=== PATIENT | female | born 1955 | race Caucasian/White ===

== ENCOUNTER 2018-01-30 03:47 | Inpatient (IN) | payer MEDICARE, MEDICAID ==
[2018-01-30] MEDS ORDERED: Nitroglycerin 0.4 MG TAB (25 Tab Bottle) ONE (05:30)
[2018-01-30 05:50] LABS: Troponin I Less than 0.010 ng/mL (< 0.028)
[2018-01-30 08:30] LABS: Troponin I Less than 0.010 ng/mL (< 0.028)
[2018-01-30 09:15] VITALS: BMI 33.7
[2018-01-30] MEDS ORDERED: Acetaminophen 325 MG TAB PO PRN (10:41)
[2018-01-30] MEDS ORDERED: traMADol HCl 50 MG TAB PO PRN (10:41)
[2018-01-30] MEDS ORDERED: Ondansetron ODT 4 MG TAB PO PRN (10:41)
[2018-01-30] MEDS ORDERED: Dextrose 5% in Water 1,000 ML IV PRN (10:41)
[2018-01-30] MEDS ORDERED: PROVENTIL INHALER 6.7 G (200 INHALATIONS) INH PRN (10:41)
[2018-01-30] MEDS ORDERED: HumaLOG 300 UNITS/3 ML VIAL SC PRN (10:41)
[2018-01-30] MEDS ORDERED: Dextrose 50% Abboject 50 ML SYRINGE SLOW IVP PRN (10:41)
--- NOTE | 2018-01-30 11:56 | HP ---
PRIMARY CARE PHYSICIAN: Dr. Hector Yang in [place]. CHIEF COMPLAINT: Chest pain. HISTORY OF PRESENT ILLNESS: Ms. Licea is a pleasant 62-year-old female that has a history of hyper tension, type 2 diabetes mellitus, coronary artery disease. She has had a 2-vessel CABG about 2 year s ago. She was in her usual state of health until yesterday morning. She says she was awakened from sleep with a heaviness in her chest. She says it was fairly severe. It felt like somebody was sitt ing on her chest. This started around 11:30 and continued until about 3:00 in the evening when she h ad gone to the emergency room in [place]. Apparently, it took 2 nitroglycerin in order to relieve it as she had another episode as well. She says it does feel similar to the pressure she had when sh eric had to have her bypass surgery. However, she says she has seen a transcription coordinator back in December and had a stress test which was okay. She says this was done because she was recently diagnosed with a very small pulmonary embolism in which she was placed on Eliquis and apparently the doctors at the [facility] there had sent her to see the transcription coordinator primarily as a precaution. She also has an appointment to see a dairy nutritionist on Friday or Friday of this coming week. The patient's says that th ey had stopped taking the Eliquis because they thought this could be causing her symptoms. She had b een on Plavix, but then when she was recently diagnosed with a pulmonary embolism she was taken off o f Plavix and put on Eliquis instead. While she was on Eliquis she started having this chest pressure and so she stopped taking it and went back on the Plavix. For some reason, they went back to taking the Eliquis again, but this time instead of taking it twice a day every day she would take Eliquis i n the morning and then only every other day in the evening and during this time they noticed that the chest pressure returned. The patient also complains of some shortness of breath, but no nausea, no vomiting, no diaphoresis. No lower extremity edema, no PND, no orthopnea. REVIEW OF SYSTEMS: All systems were reviewed and are negative except for that mentioned in the histo ry of present illness. PAST MEDICAL HISTORY: Coronary artery disease. She has had stents placed, the most recent was in . She had a bypass surgery 2 years ago. Also has diabetes mellitus type 2, hyperlipidemia, hypert ension, history of a hemorrhagic stroke in which she has had a DOWEL PIN WORKER shunt. She also has vertigo. PAST SURGICAL HISTORY: She has had a 2-vessel bypass, left hip and shoulder, DOWEL PIN WORKER shunt, tonsillectomy , bilateral tubal ligation, coronary stents x2. SOCIAL HISTORY: She is a former smoker. She quit in 2011. She had been smoking for 30 years and a pack a day. Denies any alcohol use. She is . ALLERGIES: CIPRO, PENICILLIN, SULFA. MEDICATIONS: Multivitamins once daily, omega 3 fatty acids 1 twice a day, cranberry 400 mg daily, ca lcium 600 mg daily, docusate 100 mg twice a daily, magnesium 250 mg daily, aspirin 81 mg a day, iron 27 mg daily, metoprolol tartrate 25 mg daily, niacin 1000 mg daily, atorvastatin 80 mg daily, lisinop ril 30 mg daily, nortriptyline 75 mg daily, Plavix 75 mg daily, buspirone 10 mg twice a day, metformi n 1000 mg twice daily, citalopram 20 mg daily, meclizine 25 mg t.i.d., ProAir 2 puffs q.6 hours as ne eded, benzonatate 150 mg daily, Zofran 4 mg q.8 hours p.r.n., Victoza 1.8 mg daily, Tramadol 50 mg q. 6h. as needed, Levemir 20 units subcu q.p.m., loratadine 10 mg daily. PHYSICAL EXAMINATION: GENERAL: She is alert and oriented. She appears to be in no acute distress. VITAL SIGNS: Blood pressure was 148/99, heart rate 94, respiratory rate of 18, temperature is 97.5, O2 sat was 100% on 2 liters. HEENT: Pupils are equal, round, and reactive. Extraocular muscles are intact. Her sclerae are anic teric. Throat; there is no erythema, no exudates. NECK: No adenopathy, no bruits. LUNGS: Clear to auscultation, no wheezing, no rales. CARDIOVASCULAR: She had a normal S1, S2. I did not appreciate an S3 or S4. No murmurs, clicks or r ubs. ABDOMEN: Obese, it is soft, it is nontender, nondistended. Positive for bowel sounds. No rebound, no guarding. EXTREMITIES: There is no edema. NEUROLOGIC: Her cranial nerves II-XII are intact. Muscle strength is 5/5 in both her upper and lowe r extremities. SKIN AND INTEGUMENT: No skin changes. No rash. LABORATORY: Troponins were all less than 0.010. The lab work from [place] was reviewed and it was noted that she had an elevated creatinine of 1.7. The sodium was 135, potassium 4.7, chloride 99, CO2 is 20, BUN of 32.8. Her white blood cell count was 12.1, hemoglobin 8.5, hematocrit is 27.3, platelet count was 366. She had a CT scan of the brain showing no acute intracranial abnormality. There was small bifrontal ____ extraaxial collections, possibly a small chronic subdural hygromas and she had a CT angiogram of the neck showing no occlusion of the basilar artery; however, there was 75% extensive type mixed art hrosclerotic plaque in both the right and the left internal carotid arteries. ASSESSMENT AND PLAN: 1. This is a pleasant 62-year-old female that presented to the emergency room complaining of chest p ressure which was very similar to what she had when she required a bypass. She reports having a rece nt negative stress test. However, she has significant risk factors for coronary artery disease inclu ding previous NE, diabetes mellitus, and hypertension. Therefore, we will bring her into observation and try to obtain her records from her previous hospital stays and consult Cardiology for further re commendations. 2. She apparently had some symptoms which were concerning for an acute coronary event while she was in the emergency room at [place]. Her tells me that they were concerned that she had some weakness in her right leg. Currently, those symptoms have completely resolved. A CT scan of the bra in was negative; however, she did have significant plaque in both of her carotid arteries. Therefore , we will consult Vascular Surgery for their recommendations. 3. With regards to diabetes mellitus, we will continue her home medications with the exception of me tformin and place her on a sliding scale insulin. 4. She does have an elevated creatinine. It is unknown if this is acute versus chronic kidney disea se. We will give her a little bit of IV fluids and recheck it to see if it has improved and further recommendations are to follow.
[2018-01-30 11:59] LABS: Troponin I Less than 0.010 ng/mL (< 0.028)
[2018-01-30] MEDS ORDERED: busPIRone HCl 10 MG TAB PO SCH ×2 (13:30)
[2018-01-30] MEDS: Meclizine HCl 25 MG TAB PO SCH ×2 (14:02→21:39)
--- NOTE | 2018-01-30 17:33 | CON ---
DATE OF CONSULTATION: 01/30/2018 SUBJECTIVE: Patient is a 62-year-old woman who presents with midsternal chest discomfort. The patie nt has a previous history of coronary artery disease. She underwent coronary bypass surgery x2 appro ximately three years ago. She is followed by a sourcing analyst in [place]. The patient states ever since her bypass, she would have midsternal chest discomfort. She was recently hospitalized 2 months ago w ith chest pain. She apparently underwent a stress test that is unremarkable. The patient has been t reated medically. She also has a history of a possible pulmonary embolus. She was treated temporari ly with Eliquis. The patient has continued to have intermittent chest discomfort. The patient state s that on the day of admission, she woke with midsternal chest discomfort. This lasted for several h ours. She received nitroglycerin in the [place] [facility] and with eventual resolution of her chest discomfort. She was transferred to [facility] and received another sublingual nitrog lycerin. The patient denies having any present chest discomfort. PAST MEDICAL HISTORY: 1. Coronary artery disease. 2. History of coronary bypass surgery. 3. History of possible pulmonary embolus. 4. Diabetes mellitus. 5. Hypertension. 6. History of cerebrovascular accident. 7. History of WATER RESOURCES PROJECT MANAGER shunt. PAST SURGICAL HISTORY: She has had a WATER RESOURCES PROJECT MANAGER shunt. She has had a tubal ligation. She has had a tonsill ectomy. SOCIAL HISTORY: She is a former smoker. ALLERGIES: She is allergic to SULFA, PENICILLIN, CIPROFLOXACIN. MEDICATIONS ON ADMISSION: Include metoprolol 25 daily, lisinopril 30 daily, Lipitor 80 daily, Plavix 75 daily, buspirone 10 daily, metformin 1000 b.i.d., Victoza 1.8 mg daily. REVIEW OF SYSTEMS: Noticeable for weakness, loss of hearing. Ten point system is otherwise unremark able. PHYSICAL EXAMINATION: GENERAL: Obese woman in no acute distress. VITAL SIGNS: Blood pressure 116/75. NECK: Showed no jugular venous. LUNGS: Clear to auscultation. HEART: Regular rate and rhythm, normal S1 and S2 with a 1/6 systolic murmur. ABDOMEN: Distended. EXTREMITIES: Showed mild edema. SKIN: Warm and dry. NEUROLOGIC: Nonfocal. VASCULAR: Radial pulses are 2+. LABORATORY DATA AND IMAGING DATA: Her troponin was less than 0.01, her sodium was 136, potassium 4.7 , chloride 99, bicarbonate 20, BUN 32.8, creatinine is 1.7, hemoglobin 8.5, hematocrit 27.3. Her EKG revealed normal sinus rhythm with a right bundle branch block or no acute ST-T wave changes. Her CT scan revealed her to have extensive bilateral cerebrovascular disease with 75% narrowing. IMPRESSION: 1. Chest pain. 2. History of coronary bypass surgery. 3. Cerebral vascular disease. 4. Hypertension. 5. Diabetes mellitus. 6. Obesity. This patient presented with chest pain. She apparently previously underwent a stress test just two mo nths ago, there was no evidence of ischemia. From a cardiac standpoint, would obtain CV Surgery cons ult to evaluate CV surgery consultation. We would add Imdur to her medical regimen. We will obtain records from her previous hospitalization.
--- NOTE | 2018-01-30 18:49 | CON ---
DATE OF CONSULTATION: 01/30/2018 DATE OF ADMISSION: 01/30/2018 REASON FOR CONSULTATION: Evaluate patient with asymptomatic carotid stenosis. HISTORY OF PRESENT ILLNESS: Ms. Licea is a 62-year-old woman who approximately 2 years ago underwe nt coronary bypass grafting x2 in [place]. Since that time, she has been admitted a couple of times in [place] with chest pain and shortness of breath. We have no records and no ability at this point other than the patient's history at seeing what actually transpired. The patient states that she has had chest pain, shortness of breath, and heaviness in her chest which is typical for angina for her. She had symptomatology similar to this before she had her bypasses d one. She has been in the hospital a couple times and told that there was nothing wrong with her hear t recently. The patient states that she has known carotid stenosis. She has been followed by her rural route mail carrier in [place]. At the time of her being seen in the [place] [facility], they performed a CT angiogram of her neck and brai n, this shows approximately 75% stenosis of the bilateral internal carotid arteries. On questioning, the patient has had no paralysis. She has had no amaurosis-type symptoms. She has h ad no speech difficulty. Dr. Quinones has seen her and is in the process of working up her cardiac situation. PAST MEDICAL HISTORY: 1. Coronary artery disease/status post coronary artery grafting. 2. Diabetes mellitus. 3. Dyslipidemia. 4. Hypertension. 5. History of a hemorrhagic stroke in which she has a NET SOLUTIONS ARCHITECT shunt. 6. History of vertigo. PAST SURGICAL HISTORY: 1. Coronary bypass grafting x2. 2. Left hip surgery. 3. Shoulder surgery. 4. NET SOLUTIONS ARCHITECT shunt. 5. Tonsillectomy. 6. Tubal ligation. SOCIAL HISTORY: She is a former smoker - she quit smoking in 2011. She does not use alcohol. She i s . ALLERGIES: CIPRO, PENICILLIN, SULFA. CURRENT MEDICATIONS: Noted. PHYSICAL EXAMINATION: GENERAL: This is awake, alert woman resting comfortably in bed without any symptomatology. VITAL SIGNS: Height is 5 feet 6 inches, weight 209 pounds, BSA is 2.10, temperature is 97.7, pulse i s 91 and regular, blood pressure is 116/75. HEENT: Sclerae nonicteric. Pupils equal, round bilaterally. NECK: Supple. I cannot auscultate a carotid bruit. CHEST: Clear bilaterally. HEART: Rhythm is regular, without murmur. ABDOMEN: Soft and nontender. EXTREMITIES: No cyanosis, clubbing or edema. VASCULAR: She has palpable carotid, radial, femoral, dorsalis pedis pulses bilaterally. VENOUS: There are no venous varicosities or venous stasis changes. LABORATORY DATA: Troponin has been less than 0.01. ASSESSMENT AND PLAN: This is a very pleasant 62-year-old woman with asymptomatic bilateral carotid s tenosis. She is in the process of having her chest pain worked up. I will see her as an outpatient if she chooses to come back here for further therapy. I have recommended that she have an elective b ilateral carotid endarterectomy at some point. This is not urgent. We will need to manipulate her a ntiplatelet agents preoperatively also prior to having surgery.
[2018-01-30] MEDS: busPIRone HCl 10 MG TAB PO SCH (21:39)
[2018-01-30] MEDS: Fish Oil 1,000 MG CAP PO SCH (21:39)
[2018-01-30] MEDS: Famotidine 20 MG TAB PO SCH (21:39)
[2018-01-30] MEDS: HumaLOG 300 UNITS/3 ML VIAL SC PRN (21:40)
[2018-01-30] MEDS ORDERED: diphenhydrAMINE 25 MG CAP PO PRN (22:21)
[2018-01-30] MEDS ORDERED: Nortriptyline HCl 25 MG CAP PO SCH (22:45)
[2018-01-30] MEDS ORDERED: Lisinopril 20 MG TAB PO SCH (22:45)
[2018-01-31 05:39] LABS: Anion Gap 14 mmol/L (10-20); BUN (Urea Nitrogen) 16 mg/dL (9.8-20.1); Calc. Creatinine Clearance 68 mL/min (70-130); Calcium 9.5 mg/dL (7.8-10.44); Carbon Dioxide 25 mmol/L (23-31); Chloride 105 mmol/L (98-107); Estimated GFR-MDRD 42; Glucose 133 mg/dL (80-115); Potassium 4.3 mmol/L (3.5-5.1); Sodium 140 mmol/L (136-145)
[2018-01-31 07:36] LABS: #Eosinphils 0.5 thou/uL (0.0-0.7); #Lymphocytes 2.3 thou/uL (1.20-3.40); #Monocytes 0.7 thou/uL (0.11-0.59); #Neutrophils 4.6 thou/uL (1.40-6.50); %Basophils 0.4 % (0.0-1.0); %Eosinophils 5.8 % (0.0-10.0); %Lymphocytes 28.1 % (21.0-51.0); %Monocytes 8.2 % (0.0-10.0); %Neutrophils 57.5 % (42.0-75.0); Anisocytosis SLIGHT = 6-15 cells (100X) (0-5/hpf); Hemoglobin 8.2 g/dL (12.0-16.0); MDiff Complete? YES; Mean Corpuscular HGB CONC 31.3 g/dL (32.0-36.0); Mean Corpuscular Hemoglobin 22.7 pg (27.0-31.0); Mean Corpuscular Volume 72.7 fL (78.0-98.0); Microcytosis SLIGHT = 6-15 cells (100X) (0-5/hpf); Ovalocytes SLIGHT = 2-5 cells (100X) (0-1/hpf); Platelet Count 321 thou/uL (130-400); Poikilocytosis SLIGHT = 6-15 cells (100X) (0-5/hpf); RBC Distribution Width 16.2 % (11.5-14.5); Red Blood Cell (RBC) Count 3.63 mill/uL (4.20-5.40)
[2018-01-31] MEDS ORDERED: Lisinopril 20 MG TAB PO SCH ×2 (09:00→21:00)
[2018-01-31] MEDS ORDERED: BENZONATATE PO SCH (09:00)
[2018-01-31] MEDS ORDERED: Nortriptyline HCl 25 MG CAP PO SCH ×2 (09:00→21:00)
[2018-01-31] MEDS ORDERED: (Liraglutide [Victoza 2-Pak] 1.8 MG) SC SCH (09:00)
[2018-01-31] MEDS: Multivit, Therapeutic 1 TAB PO SCH (09:23)
[2018-01-31] MEDS: Niacin 500 MG TAB PO SCH (09:23)
[2018-01-31] MEDS: Loratadine 10 MG TAB PO SCH (09:24)
[2018-01-31] MEDS: Fish Oil 1,000 MG CAP PO SCH ×2 (09:24→20:32)
[2018-01-31] MEDS: Magnesium Oxide 250 MG TAB PO SCH (09:24)
[2018-01-31] MEDS: Meclizine HCl 25 MG TAB PO SCH ×3 (09:24→20:32)
[2018-01-31] MEDS: Famotidine 20 MG TAB PO SCH ×2 (09:25→20:32)
[2018-01-31] MEDS: Calcium Carbonate 600 MG TAB PO SCH (09:25)
[2018-01-31] MEDS: Clopidogrel Bisulfate 75 MG TAB PO SCH (09:25)
[2018-01-31] MEDS: Ferrous Sulfate 325 MG TAB PO SCH (09:25)
[2018-01-31] MEDS: Citalopram 20 MG TAB PO SCH (09:25)
[2018-01-31] MEDS: busPIRone HCl 10 MG TAB PO SCH ×2 (09:26→20:32)
[2018-01-31] MEDS: Aspirin 81 mg Enteric Coated Tablet PO SCH (09:26)
[2018-01-31] MEDS: Atorvastatin Calcium 40 MG TAB PO SCH (09:26)
[2018-01-31] MEDS ORDERED: Regadenoson 0.4 MG/5 ML SYRINGE ONE (10:39)
[2018-01-31] MEDS: Metoprolol Tartrate 25 MG TAB PO SCH (16:58)
--- NOTE | 2018-01-31 17:40 | PDOC.PN ---
- Subjective Encounter Start Date: 01/31/18 Encounter Start Time: 17:39 Ms. Licea was seen today in follow-up. she says she has less chest pain after being started on Imdur. - Objective Resuscitation Status: Resuscitation Status FULL:Full Resuscitation MAR Reviewed: Yes Vital Signs & Weight: Vital Signs (12 hours) Temp Pulse Pulse Pulse Pulse Resp BP 01/31/18 17:13 97.8 F 96 18 01/31/18 09:50 98 85 97 113/67 01/31/18 08:00 98.3 F 91 20 01/31/18 07:43 98.3 F 91 20 BP BP BP Pulse Ox 01/31/18 17:13 119/63 99 01/31/18 09:50 105/61 116/68 01/31/18 08:00 100 01/31/18 07:43 120/66 100 Weight Weight 209 lb Result Diagrams: 01/31/18 05:05 01/31/18 05:05 Additional Labs: Accuchecks 01/31/18 01/31/18 01/31/18 16:42 10:23 05:07 POC Glucose 250 H 180 H 146 H 01/30/18 20:29 POC Glucose 227 H Phys Exam - Physical Examination HEENT: PERRLA Respiratory: no wheezing, no rales, no rhonchi, clear to auscultation bilateral Cardiovascular: RRR, no significant murmur, no rub Gastrointestinal: soft, non-tender, positive bowel sounds Musculoskeletal: no edema Dx/Plan (1) Chest pain Code(s): R07.9 - CHEST PAIN, UNSPECIFIED Status: Acute (2) Coronary artery disease Code(s): I25.10 - ATHSCL HEART DISEASE OF [place] CORONARY ARTERY W/O ANG PCTRS Status: Acute (3) Hypertension Code(s): I10 - ESSENTIAL (PRIMARY) HYPERTENSION Status: Acute (4) Diabetes mellitus type 2 in obese Code(s): E11.69 - TYPE 2 DIABETES MELLITUS WITH OTHER SPECIFIED COMPLICATION; E66.9 - OBESITY, UNSPECIFIED Status: Acute - Plan * Chest pain- Await stress test results * The records from [facility] were obtain, and reviewed. She was hospitalized from 12/10-. During the admission she had a nuclear stress test which was negative for reversible ischemia, but did have some evidence diaphragmatic attenuation. She was evaluated by a Licensed Clinical Psychologist, and it was felt that her chest pain was due pleuritic in nature, and possibly related to the recent PE, or musculoskeletal in origin. * Stress test here is pending * CKD- her creatinine during her hospitalization back in November was 1.4, therfore i suspect she is close to her baseline * HTN- blood pressure is stable * DM- blood glucose is stable * Cerebral Vascular disease- Carotid endarterectomy has been recommended, but can be done on a non- emergent basis
[2018-01-31] MEDS: HumaLOG 300 UNITS/3 ML VIAL SC PRN (20:43)
[2018-02-01] MEDS: busPIRone HCl 10 MG TAB PO SCH (09:21)
[2018-02-01] MEDS: Metoprolol Tartrate 25 MG TAB PO SCH (09:21)
[2018-02-01] MEDS: Meclizine HCl 25 MG TAB PO SCH ×2 (09:22→14:50)
[2018-02-01] MEDS: Aspirin 81 mg Enteric Coated Tablet PO SCH (10:42)
[2018-02-01] MEDS: Atorvastatin Calcium 40 MG TAB PO SCH (10:42)
[2018-02-01] MEDS: Clopidogrel Bisulfate 75 MG TAB PO SCH (10:43)
[2018-02-01] MEDS: Calcium Carbonate 600 MG TAB PO SCH (10:43)
[2018-02-01] MEDS: Citalopram 20 MG TAB PO SCH (10:43)
[2018-02-01] MEDS: Fish Oil 1,000 MG CAP PO SCH (10:44)
[2018-02-01] MEDS: Famotidine 20 MG TAB PO SCH (10:44)
[2018-02-01] MEDS: Ferrous Sulfate 325 MG TAB PO SCH (10:44)
[2018-02-01] MEDS: Multivit, Therapeutic 1 TAB PO SCH (10:45)
[2018-02-01] MEDS: Magnesium Oxide 250 MG TAB PO SCH (10:45)
[2018-02-01] MEDS: Loratadine 10 MG TAB PO SCH (10:45)
[2018-02-01] MEDS: Niacin 500 MG TAB PO SCH (10:45)
--- NOTE | 2018-02-01 13:07 | NM ---
MYOCARDIAL PERFUSION EVALUATION: INDICATION: Chest pain. RADIOPHARMACEUTICAL: 27 mCi Technetium 99m sestamibi IV was utilized for the stress examination. 9.3 mCi Technetium 99m se stamibi was utilized for the rest examination. FINDINGS: The examination was submitted for interpretation at 12:51 p.m. on 02/01/18. No reversible myocardial perfusion defect is evident when comparing the rest and stress images. Ther e was normal wall motion and thickening. The estimated LVEF is 70%. IMPRESSION: No scintigraphic evidence to suggest reversible myocardial ischemia. POS: CONRADO
--- NOTE | 2018-02-01 14:57 | PDOC.PN ---
- Subjective Encounter Start Date: 02/01/18 Encounter Start Time: 14:55 Ms. Licea was seen today in follow-up. She says her "vertigo" is beginning to " kick in" She does not have any chest pain. - Objective Resuscitation Status: Resuscitation Status FULL:Full Resuscitation MAR Reviewed: Yes Vital Signs & Weight: Vital Signs (12 hours) Temp Pulse Resp BP Pulse Ox 02/01/18 11:46 97.8 F 83 18 98/60 97 02/01/18 08:00 98.2 F 82 20 126/67 100 02/01/18 04:00 97.6 F 75 18 98/59 L 97 Weight Weight 209 lb I&O: 01/31/18 02/01/18 02/02/18 06:59 06:59 06:59 Intake Total 240 Balance 240 Result Diagrams: 01/31/18 05:05 01/31/18 05:05 Additional Labs: Accuchecks 02/01/18 02/01/18 01/31/18 10:41 05:39 20:18 POC Glucose 293 H 145 H 265 H 01/31/18 16:42 POC Glucose 250 H Phys Exam - Physical Examination HEENT: PERRLA Respiratory: no wheezing, no rales, no rhonchi, clear to auscultation bilateral Cardiovascular: RRR, no significant murmur, no rub Gastrointestinal: soft, non-tender, positive bowel sounds Musculoskeletal: no edema Dx/Plan (1) Chest pain Code(s): R07.9 - CHEST PAIN, UNSPECIFIED Status: Acute (2) Coronary artery disease Code(s): I25.10 - ATHSCL HEART DISEASE OF [place] CORONARY ARTERY W/O ANG PCTRS Status: Acute (3) Hypertension Code(s): I10 - ESSENTIAL (PRIMARY) HYPERTENSION Status: Acute (4) Diabetes mellitus type 2 in obese Code(s): E11.69 - TYPE 2 DIABETES MELLITUS WITH OTHER SPECIFIED COMPLICATION; E66.9 - OBESITY, UNSPECIFIED Status: Acute - Plan * Chest pain- stress test was negative * She is stable for discharge home with close follow-up with her Primary Solderer Assembly Repair.
[2018-02-01 15:18] VITALS: BP 100/66; TEMP 98.4
--- NOTE | 2018-02-01 23:14 | DIS ---
DATE OF ADMISSION: 01/30/2018 DATE OF DISCHARGE: 02/01/2018 PRIMARY CARE PHYSICIAN: Out of town. DISCHARGE DISPOSITION: Home. PRIMARY DISCHARGE DIAGNOSES: 1. Chest pain, probable noncardiac. 2. History of coronary artery disease. 3. Diabetes mellitus, type 2. 4. Hyperlipidemia. 5. Hypertension. 6. History of hemorrhagic stroke, status post OFFICE ASSISTANT RECEPTIONIST shunt. 7. History of vertigo. DISCHARGE MEDICATIONS: Include Imdur extended release 15 mg daily. She is to continue her usual [facility] medications as well including Tramadol 50 mg q.6 as needed, Zofran 4 mg q.8 hours as needed, omega 3 fatty acids 1000 mg twice a day, nortriptyline 75 mg at bedtime, niacin 1000 mg daily, multivitamin once a day, metoprolol 25 mg daily, metformin 1000 mg twice daily, meclizine 25 mg t.i.d., magnesium 250 mg daily, Claritin 10 mg daily, lisinopril 30 mg at bedtime, Victoza 1.8 subcu daily, iron 27 mg daily, Levemir 20 units subcu q.p.m., docusate 100 mg twice daily, Plavix 75 mg daily, citalopram 20 mg daily, calcium carbonate 600 mg daily, buspirone 10 mg twice a day, benzonatate 150mg, Lipitor 80 mg daily, aspirin 81 mg daily, albuterol inhaler q.6 as needed. PROCEDURES DONE DURING ADMISSION: The patient had a nuclear stress test which was negative. CODE STATUS: FULL CODE. ALLERGIES: CIPROFLOXACIN, PENICILLIN, SULFA and IMMUNIZATIONS. HOSPITAL COURSE: Ms. Licea is a pleasant 62-year-old female who came to the emergency room complai felix of chest pain. She described as heaviness in her chest and it had awakened her from sleep. Giv en her extensive history of coronary artery disease, she was placed in observation and ruled out. eric underwent a nuclear stress test which was negative. Also, the records from [facility] in [facility] were obtained. At that time, she had complained of chest pain as well. The full details of which were outlined in one of my progress notes. She was evaluated there, had a nuclear stress te st which was negative. She also had lower extremity venous Dopplers done as well which was negative. It was verified that she had a previous pulmonary embolism in which she was placed on Eliquis for. At that time, her chest pain was thought to be atypical and likely musculoskeletal or possibly relat ed to her recent pulmonary embolism. Also, during her hospital stay at our facility, we did a CT ang iogram of her neck and it was found that she did have some significant blockage in her carotid arteri es, both the right and left internal carotid arteries at approximately 75%. She was evaluated by a v ascular surgeon and it is recommended that at some point in the near future, she should undergo carot id endarterectomy. However, this was not emergent and can be done in the outpatient setting. The charito bhakta was thus discharged home with a new medication, Imdur which seemed to help her symptoms.
== END 2018-02-01 18:30 | disposition home or self-care (01) | DRG 313 ==
LOC: ERS 03:47 → 2SE 08:06
PROVIDERS: ADMIT Hospitalist; ATTEND Hospitalist
DX: R07.9 Chest pain, unspecified (principal); I10 Essential (primary) hypertension; E11.9 Type 2 diabetes mellitus without complications; E66.9 Obesity, unspecified; I67.9 Cerebrovascular disease, unspecified; Z91.81 History of falling; Z95.1 Presence of aortocoronary bypass graft; E78.5 Hyperlipidemia, unspecified; Z86.73 Personal history of transient ischemic attack (TIA), and cerebral infarction without residual deficits; F41.9 Anxiety disorder, unspecified; F32.9 Major depressive disorder, single episode, unspecified; Z86.711 Personal history of pulmonary embolism; Z79.01 Long term (current) use of anticoagulants; Z87.891 Personal history of nicotine dependence; R42 Dizziness and giddiness; I25.2 Old myocardial infarction; I65.23 Occlusion and stenosis of bilateral carotid arteries; Z68.33 Body mass index [BMI] 33.0-33.9, adult
CPT/HCPCS: 36415; 36416; 78452; 80048; 84484; 85025; 93005; 93017; A9500; G8978-GP-CJ; G8979-GP-CI; J0280; J2785